=== PATIENT | male | born 1980 ===

== ENCOUNTER 2018-03-20 12:57 | Emergency (ER) | payer OTHER ==
[~2018-03-20] VITALS: Ht 193 cm; Wt 107.0 kg
== END 2018-03-20 17:55 | disposition home or self-care (01) ==
LOC: ER 12:57
DX: S13.4XXA Sprain of ligaments of cervical spine, initial encounter (principal); M62.830 Muscle spasm of back; V49.9XXA Car occupant (driver) (passenger) injured in unspecified traffic accident, initial encounter; Y93.89 Activity, other specified; Y92.488 Other paved roadways as the place of occurrence of the external cause; Y99.8 Other external cause status; S30.0XXA Contusion of lower back and pelvis, initial encounter